=== PATIENT | male | born 1965 | race African-American/Black ===

== ENCOUNTER 2020-11-18 16:08 | Emergency (ER) | payer OTHER ==
[2020-11-18] MEDS ORDERED: ASPIRIN 81 MG TABLET, CHEWABLE PO ONE (16:45)
[2020-11-18 16:48] LABS: ABSOLUTE EOSINOPHILS # (AUTO) 0.1 10^3/uL (0.0-0.6); ABSOLUTE MONOCYTES (AUTO) 0.6 10^3/uL (0.1-1.4); ABSOLUTE NEUT (AUTO) 3.3 10^3/uL (1.7-8.2); BASOPHILS % (AUTO) 0.7 % (0-2); EOSINOPHILS % (AUTO) 1.9 % (0-6); HEMATOCRIT 43.9 % (37.9-51.0); HEMOGLOBIN 14.5 g/dL (13.5-17.0); LYMPHOCYTES % (AUTO) 33.3 % (13-45); MEAN CORPUSCULAR HEMOGLOBIN 27.5 pg (27.0-33.4); MEAN CORPUSCULAR VOLUME 83 fl (80-97); MONOCYTES % (AUTO) 9.8 % (3-13); PLATELET COUNT 110 10^3/uL (150-450); RED BLOOD COUNT 5.27 10^6/uL (4.35-5.55); RED CELL DISTRIBUTION WIDTH 14.8 % (11.5-14.0); SEGMENTED NEUTROPHILS % (AUTO) 54.3 % (42-78); TOTAL CELLS COUNTED % (AUTO) 100 %
--- NOTE | 2020-11-18 17:06 | RADIOLOGY REPORT (SQ) ---
EXAM DESCRIPTION: CHEST SINGLE VIEW IMAGES COMPLETED DATE/TIME: 11/18/2020 4:49 pm REASON FOR STUDY: chest pain COMPARISON: None. EXAM PARAMETERS: NUMBER OF VIEWS: One view. TECHNIQUE: Single frontal radiographic view of the chest acquired. RADIATION DOSE: NA LIMITATIONS: None. FINDINGS: LUNGS AND PLEURA: Left mid lung atelectasis. No focal consolidation. No pleural effusion . No pneumothorax. MEDIASTINUM AND HILAR STRUCTURES: No masses. Contour normal. HEART AND VASCULAR STRUCTURES: Cardiomegaly with central vascular congestion. BONES: No acute findings. HARDWARE: None in the chest. OTHER: No other significant finding. IMPRESSION: Constellation of findings suggests CHF exacerbation. Superimposed infection is not excl uded. TECHNICAL DOCUMENTATION: JOB ID: [id number] 2010 [employer]- All Rights Reserved Reading location - IP/workstation name: [email or web address]
[2020-11-18 17:08] LABS: ALKALINE PHOSPHATASE 159 U/L (38-126); ANION GAP 8 (5-19); ASPARTATE AMINO TRANSFERASE 63 U/L (17-59); BILIRUBIN,DIRECT 0.2 mg/dL (0.0-0.4); BILIRUBIN,TOTAL 0.7 mg/dL (0.2-1.3); BLOOD UREA NITROGEN 13 mg/dL (7-20); CALCIUM 9.2 mg/dL (8.4-10.2); CARBON DIOXIDE 25 mmol/L (22-30); CHLORIDE 105 mmol/L (98-107); CREATINE KINASE 108 U/L (55-170); GLUCOSE 99 mg/dL (75-110); POTASSIUM 4.5 mmol/L (3.6-5.0); TOTAL PROTEIN 8.1 g/dL (6.3-8.2)
[2020-11-18 17:18] LABS: CREATINE KINASE MB 2.05 ng/mL (<4.55)
[2020-11-18 17:22] LABS: TROPONIN I 0.036 ng/mL
--- NOTE | 2020-11-18 18:07 | RADIOLOGY REPORT (SQ) ---
EXAM DESCRIPTION: CTA CHEST IMAGES COMPLETED DATE/TIME: 11/18/2020 5:47 pm REASON FOR STUDY: Dyspnea, CP, elevated d-dimer COMPARISON: None. TECHNIQUE: CT scan of the chest performed using helical scanning technique with dynamic intravenous contrast injection. Images reviewed with lung, soft tissue and bone windows. Reconstructed coronal and sagittal MPR images reviewed. Additional 3 dimensional post-processing performed to develop Maximal Intensity Projection images (CA P). All images stored on PACS. All CT scanners at this facility use dose modulation, iterative reconstruction, and/or weight based d osing when appropriate to reduce radiation dose to as low as reasonably achievable (ALARA). [facility]: Dose Right [facility]: CareDose [facility]: Dose Right [facility]: Teradose 4D [facility]: [facility] CONTRAST TYPE AND DOSE: contrast/concentration: Isovue 350.00 mmol/ml; Total Contrast Delivered: 63. 0 ml; Total Saline Delivered: 56.0 ml Contrast bolus optimized for the pulmonary arteries. Not diagnostic for the aorta. RENAL FUNCTION: BUN 13 creatinine 0.93 RADIATION DOSE: CT Rad equipment meets quality standard of care and radiation dose reduction techniq ues were employed. CTDIvol: 14.3 - 33.1 mGy. DLP: 552 mGy-cm. . LIMITATIONS: None. FINDINGS: LUNGS AND PLEURA: No masses, infiltrates, or pneumothorax. No pleural effusions or pleura l calcifications. AORTA AND GREAT VESSELS: No aneurysm. Contrast bolus not optimized for the aorta. HEART: Small pericardial effusion. Moderate coronary artery calcifications. Cardiomegaly. PULMONARY ARTERIES: No emboli visualized in the main pulmonary arteries or the segmental branches. HILAR AND MEDIASTINAL STRUCTURES: No identified masses or abnormal nodes. HARDWARE: None in the chest. UPPER ABDOMEN: No significant findings. Limited exam. THYROID AND OTHER SOFT TISSUES: No masses. No adenopathy. BONES: No acute or significant finding. 3D MIPS: Confirm above findings. OTHER: No other significant finding. IMPRESSION: 1. There is no pulmonary embolus. There is no aortic aneurysm. 2. Cardiomegaly without sara pulmonary edema. Small pericardial effusion. COMMENT: Quality ID # [id number]: Final reports with documentation of one or more dose reduction techniques (e.g., Automated exposure control, adjustment of the mA and/or kV according to patient size, use of iterative reconstruction technique) TECHNICAL DOCUMENTATION: JOB ID: [id number] 2011 [employer]- All Rights Reserved Reading location - IP/workstation name: [email or web address]
--- NOTE | 2020-11-18 19:36 | EKG REPORT ---
SEVERITY:- ABNORMAL ECG - SINUS RHYTHM MULTIFORM VENTRICULAR PREMATURE COMPLEXES PROBABLE LEFT ATRIAL ABNORMALITY LEFT ANTERIOR FASCICULAR BLOCK LEFT VENTRICULAR HYPERTROPHY BORDERLINE PROLONGED QT INTERVAL : Confirmed by: Sarkis Ramos MD 18-Nov-2020 19:36:03
--- NOTE | 2020-11-18 21:04 | ER Document Report ---
ED General - General Chief Complaint: Chest Pain Stated Complaint: CHEST PAINS Time Seen by Provider: 11/18/20 16:44 Mode of Arrival: Ambulatory - [facility] Notes: This patient is a 55-year-old gentleman who has a history of hypertension off meds for about a year. He is visiting from outside the area. He presents today because of chest pain and elevated blood pressure. The story starts about a week ago. He states that he started feeling short of breath. He denies any cough or fever. He denies any exposure to illness that he knows of. Today his shortness of breath has been stable but he began having some intermittent fleeting midsternal chest pains. Family took his blood pressure and found that it was elevated. He was given another person's medications as detailed in the nursing note consisting of losartan, hydrochlorothiazide, and amlodipine. He feels better now. His pain has essentially resolved. He denies any diaphoresis. He denies any nausea. He denies any palpitations. He has no history of coronary artery disease or VTE. He has no history of Covid. He is otherwise in his usual state of health. - Related Data Allergies/Adverse Reactions: No Known Allergies Allergy (Unverified 11/18/20 16:41) Past Medical History - General Information source: Patient, Relative - Social History Smoking Status: Current Every Day Smoker Chew tobacco use (# tins/day): No Frequency of alcohol use: Heavy Drug Abuse: None Family History: Reviewed & Not Pertinent Patient has homicidal ideation: No - Medical History Medical History: Other Notes: Past medical history is remarkable for hypertension. Review of Systems - Review of Systems Notes: All other systems are reviewed and are negative or noncontributory except as noted in the history of present illness. Physical Exam - Vital signs Vitals: Temp Pulse Resp BP Pulse Ox 98.5 F 102 H 20 149/99 H 95 11/18/20 16:18 11/18/20 16:18 11/18/20 16:18 11/18/20 16:18 11/18/20 16:18 - Notes Notes: General: Well-developed slender male no acute distress. Vital signs and nursing chief complaint are reviewed. HEENT grossly normal to inspection. Neck: Supple nontender no adenopathy. Chest: Lungs clear to auscultation all garcia. Normal configuration. Nontender with palpation. Heart: Regular rate and rhythm without murmur rub or gallop. Occasional PVCs heard. Abdomen: Soft nontender no mass organomegaly. Extremities: Without clubbing cyanosis edema or deformity. Skin: Warm moist good turgor no rashes. Neuro: Alert and oriented x3. No focal motor or sensory deficits. Course - Re-evaluation Re-evalutation: 11/18/20 21:10 Patient was given additional aspirin to bring his dose up to 324 mg. His initial labs were all normal or nondiagnostic. He had a minimal elevation of his troponin which was nonspecific. EKG showed no acute ischemic changes. Repeat troponin was actually trending downward. Patient's blood pressure r emained acceptable although he did have diastolic hypertension. We discussed the need for follow-up. He is headed home on Saturday. He will follow-up with his primary care provider on Saturday and arrange for a follow-up in the office and a cardiac stress test. For now I think he could benefit from being amlodipine so we will start him on amlodipine 5 mg a day. He was counseled to return to the nearest emergency department if his chest pain recurred or if any other concerning symptoms develop. His D-dimer was borderline elevated. CT of the chest revealed no evidence of any PE or other acute abnormality. 11/18/20 21:11 - Vital Signs Vital signs: Temp Pulse Resp BP Pulse Ox 98.2 F 102 H 20 123/99 H 98 11/18/20 19:02 11/18/20 16:18 11/18/20 20:01 11/18/20 20:01 11/18/20 20:01 - Laboratory Results Result Diagrams: 11/18/20 16:33 11/18/20 16:33 Laboratory Results Interpreted: 11/18/20 11/18/20 11/18/20 16:33 16:33 16:33 RDW 14.8 H Plt Count 110 L D-Dimer 0.52 H AST 63 H Alkaline Phosphatase 159 H Critical Laboratory Results Reviewed: No Critical Results - Radiology Results Radiology Results Interpreted: 11/18/20 21:11 Chest X-Ray 11/18/20 16:40 IMPRESSION: Constellation of findings suggests CHF exacerbation. Superimposed infection is not excluded. Chest/Abdomen CTA 11/18/20 17:29 IMPRESSION: 1. There is no pulmonary embolus. There is no aortic aneurysm. 2. Cardiomegaly without sara pulmonary edema. Small pericardial effusion. Critical Radiology Results Reviewed: No Critical Results - EKG Interpretation by Me EKG shows normal: Sinus rhythm Rate: Normal Rhythm: PVC's [place]/QRS: LAHB/LAFB Discharge - Discharge Clinical Impression: Chest pain Qualifiers: Chest pain type: unspecified Qualified Code(s): R07.9 - Chest pain, unspecified Hypertension Qualifiers: Hypertension type: essential hypertension Qualified Code(s): I10 - Essential (primary) hypertension Condition: Good Disposition: HOME, SELF-CARE Instructions: Aspirin (Cardiac) ([facility]), Chest Pain of Unclear Cause ([facility]), Calcium Channel Blockers ([facility]) Additional Instructions: Contact your doctor for follow-up on Saturday. You should be reexamined in the office, have your blood pressure rechecked, and be scheduled for cardiac stress test. Take aspirin 81 mg a day. A prescription for amlodipine has been sent to [facility] in [place] for you. Please pick that up and start it tomorrow morning once a day. Return if any other concerning symptoms develop. Prescriptions: Amlodipine Besylate [Norvasc 5 mg Tablet] 5 mg PO DAILY #30 tablet
[2020-11-18 21:17] VITALS: BP 126/96
== END 2020-11-18 21:26 | disposition home or self-care (01) ==
LOC: ER 16:08
DX: R07.9 Chest pain, unspecified (principal); I10 Essential (primary) hypertension; R06.02 Shortness of breath; F17.200 Nicotine dependence, unspecified, uncomplicated
CPT/HCPCS: 36415; 71045; 71275; 80053; 82550; 82553; 84484; 85025; 85379; 93005; 93010; 99285